=== PATIENT | female | born 1955 | race African-American/Black ===

== ENCOUNTER 2025-01-18 11:18 | Emergency (ER) | payer MEDICARE, MEDICAID ==
[~2025-01-18] VITALS: Ht 162.6 cm; Wt 62.0 kg
[2025-01-18 11:24] VITALS: O2SAT 100
[2025-01-18] MEDS: ACETAMINOPHEN 325MG TABLET PO ONE (12:22)
[2025-01-18 12:38] LABS: BASOPHILS % 0.3 % (0.0-2.0); EOSINOPHILS % 1.9 % (0.0-5.0); HEMATOCRIT. 34.7 % (36.0-48.0); HEMOGLOBIN. 11.5 g/dL (12.0-16.0); LYMPHOCYTES % 20.8 % (20.0-50.0); MEAN PLATELET VOLUME 7.6 fl (7.4-10.4); MONOCYTES % 5.7 % (2.0-8.0); NEUTROPHILS % 71.3 % (40.0-76.0); PLATELET 227 x1000/uL (130-400); RED BLOOD CELL COUNT 3.71 mill/uL (4.2-5.4); RED CELL DISTRIBUTION WIDTH 13.9 % (11.6-14.6)
[2025-01-18 12:56] LABS: CREATININE 1.2 mg/dL (0.6-1.0); TROPONIN I HIGH SENSITIVITY 7 ng/L (3.0-34)
[2025-01-18 12:57] LABS: UREA NITROGEN BLOOD 16 mg/dL (9-23)
[2025-01-18 13:15] VITALS: TEMP 36.8
[2025-01-18] MEDS ORDERED: HYDROCODONE/ACETAMINOPHEN 5/325MG TABLET PO PRN (14:00)
[2025-01-18] MEDS ORDERED: CLONIDINE 0.1MG TABLET PO PRN (14:00)
[2025-01-18] MEDS ORDERED: MORPHINE SULFATE 2 MG/ML INJ (NOT FOR IM USE) IV PRN (14:00)
[2025-01-18] MEDS ORDERED: ZOLPIDEM TARTRATE 5MG TABLET PO PRN (14:00)
[2025-01-18] MEDS ORDERED: MAGNESIUM/ALUMINUM HYDROXIDE/SIMETHICONE 30ML UDC PO PRN (14:00)
[2025-01-18] MEDS ORDERED: ACETAMINOPHEN 325MG TABLET PO PRN (14:00)
[2025-01-18] MEDS ORDERED: ONDANSETRON HCL 4MG/2ML INJ IV PRN (14:00)
[2025-01-18 15:19] LABS: TROPONIN I HIGH SENSITIVITY 7 ng/L (3.0-34)
[2025-01-18] MEDS: ENOXAPARIN 40MG/0.4ML SYR SUBCUT SCH (15:22)
[2025-01-18 16:36] VITALS: TEMP 98.6
[2025-01-18 17:30] VITALS: BP 156/76; PULSE 69; RESP 16; O2SAT 100
[2025-01-19] MEDS ORDERED: PANTOPRAZOLE SODIUM 40 MG/VIAL IV SCH (09:00)
== END 2025-01-18 17:31 | disposition left against medical advice (07) ==
LOC: ER 11:18 → 3WST 12:42 → UNDOADMIN 12:42 → EDBEDREQ 13:18 → EDBEDREQTM 13:18 → ENRESERV 14:44
DX: R07.9 Chest pain, unspecified (principal); R06.02 Shortness of breath; E78.00 Pure hypercholesterolemia, unspecified; I10 Essential (primary) hypertension; Z79.899 Other long term (current) drug therapy
CPT/HCPCS: 99285; 93970; 71275; 71045; 80048; 83880; 85025; 84484; 36415; 93005; 96372; Q9967; J1650